=== PATIENT | female | born 1935 | race Caucasian/White ===

== ENCOUNTER → 2016-10-30 | Outpatient (CLI) | payer BC ==
[~2016-10-30] MED LIST: ASCA500 PO; ATV/1 PO; CALC1CAP24 PO; CARBGEL OPB; CHOL100010 PO; GABA-113 PO; HYPR0.2D OPB; LANS30CA12 PO; METO25TA3 PO; MOME50SP5; MULT-506 PO; POLY335025 PO; PROB1TAB16 PO; ZOLE5INJ IV
[2016-10-30 09:50] LABS: BASO % 0.6 %; BASO ABS # 0.03 K/uL (0-0.2); COMPLETE YES; EOS % 2.6 %; HEMATOCRIT 37.6 % (37-47); IG% 0.2 %; LYMPH % 43.9 %; LYMPH ABS # 2.04 K/uL (1.2-3.4); MEAN CELL VOLUME 88.9 fL (80-100); MEAN CORPUSCULAR HEMOGLOBIN 29.8 pg (25-34); MEAN CORPUSCULAR HGB CONC 33.5 g/dl (32-36); MEAN PLATELET VOLUME 10.7 fL (7.4-10.4); MONO % 11.8 %; NEUT % 40.9 %; PLATELET COUNT 177 K/uL (130-400); RED BLOOD COUNT 4.23 M/uL (4.2-5.4); WHITE BLOOD COUNT 4.65 K/uL (4.8-10.8)
[2016-10-30 10:02] LABS: BLOOD UREA NITROGEN 24 mg/dl (7-18); BUN/CREATININE RATIO 32.3 (10-20); CARBON DIOXIDE 29 mmol/L (21-32); CHLORIDE 107 mmol/L (98-107); CHOLESTEROL 189 mg/dl (0-200); CREATININE 0.73 mg/dl (0.60-1.20); GLUCOSE 93 mg/dl (70-99); SODIUM 143 mmol/L (136-145); TRIGLYCERIDES 126 mg/dl (0-150); VERY LOW DENSITY LIPOPROT CALC 25 mg/dl
[2016-10-30 10:05] LABS: CALCIUM 9.3 mg/dl (8.5-10.1)
[2016-10-30 10:06] LABS: CHOLESTEROL/HDL RATIO 2.9; FERRITIN 19.9 ng/ml (8.0-388.0); HDL CHOLESTEROL 65 mg/dl; LDL CHOLESTEROL CALCULATED 99 mg/dl
== END | disposition home or self-care (01) ==
LOC: C.LAB1850 07:31
PROVIDERS: ATTEND Obstetrics & Gynecology
DX: R92.2 Inconclusive mammogram (principal); Z13.220 Encounter for screening for lipoid disorders; M81.0 Age-related osteoporosis without current pathological fracture; D50.9 Iron deficiency anemia, unspecified

== ENCOUNTER → 2016-11-05 | Outpatient (CLI) | payer BC ==
[~2016-11-05] MED LIST changes: +GADAVIST IV PRN
--- NOTE | 2016-11-06 13:18 | MAMMOGRAPHY REPORT ---
BREAST MRI OF BOTH BREASTS : 11/05/2016 CLINICAL HISTORY: Personal history of left breast DCIS, and dense breasts. Patient presents for add itional screening. COMPARISON: Comparison is made to exams dated: 04/08/2016 mammogram, 04/05/2015 mammogram, 04/18/2014 ultrasound, 04/04/2014 mammogram, 03/31/2013 mammogram, and 03/30/2012 mammogram - [facility]. TECHNIQUE: Using a 1.5 Hilaria magnet and dedicated breast coil, multisequence axial images were obtai leonardo through the breasts. After uneventful IV administration of 5.5 mL of Gadavist, dynamic multipha se contrast-enhanced axial images, and sagittal postcontrast were obtained. Temporal subtraction ax ial images and 3-D MIP images are provided. Everything was then reviewed on a 3-D workstation, [employer]. FINDINGS: There is no significant background parenchymal enhancement. There are several foci of adeola ceptibility artifact in the middle and anterior 12:00, retroareolar and 6:00 axes of the left breast , denoting an area of prior surgery. There is no evidence of a suspicious enhancing mass, non-mass enhancement, suspicious kinetics or unexpected architectural distortion. No focal skin thickening o r nipple retraction. No suspicious axillary lymphadenopathy. Note is made of cardiomegaly. IMPRESSION: ACR BI-RADS CATEGORY 2: BENIGN 1. Evidence of prior surgery within the left breast. No MRI evidence of malignancy within the breas ts. Continuation of annual screening mammography schedule is recommended, with possible addition of breast MRI, given the extremely dense breast parenchyma and personal history of left breast cancer. 2. Cardiomegaly. The patient will receive written notification of the results. Sharee Duran M.D. ay/:11/05/2016 21:57:50 Senior Clinical Research Scientist: supervisor advice, [facility] letter sent: Normal 1/2 BI-RADS Code: ACR BI-RADS Category 2: Benign
== END | disposition home or self-care (01) ==
LOC: C.MRI 12:40
PROVIDERS: ATTEND Obstetrics & Gynecology
DX: R92.2 Inconclusive mammogram (principal); Z85.3 Personal history of malignant neoplasm of breast; I51.7 Cardiomegaly

== ENCOUNTER → 2016-12-02 | Outpatient (CLI) | payer BC ==
[~2016-12-02] MED LIST changes: -GADAVIST IV PRN
--- NOTE | 2016-12-02 14:57 | MAMMOGRAPHY REPORT ---
UNILATERAL LEFT DIGITAL DIAGNOSTIC MAMMOGRAM TOMOSYNTHESIS WITH CAD AND TARGETED LEFT ULTRASOUND: CLINICAL HISTORY: 81-year-old woman with a personal history of left breast cancer status post breast conservation therapy presents with pain and tenderness in the upper outer, superior, periareolar an d retroareolar left breast for approximately 6 weeks. No palpable mass, skin changes or thickening. No nipple discharge. TECHNIQUE: Left breast tomosynthesis in addition to standard 2D mammography was performed. Current [place] was also evaluated with a Computer Aided Detection (CAD) system. COMPARISON: Comparison is made to exams dated: 11/05/2016 breast MRI, 06/24/2016 ultrasound, 6 mammogram, 04/05/2015 mammogram, 04/04/2014 mammogram, and 03/31/2013 mammogram - [facility]. BREAST COMPOSITION: The tissue of the left breast is extremely dense, which lowers the sensitivity of mammography. FINDINGS: A square shaped pain marker was placed on the skin of the left upper outer quadrant, azael ting the area of pain pointed out by the patient. There are a few coarse benign calcifications in t he anterior retroareolar left breast. There is expected architectural distortion in the retroareola r breast, at the site of prior surgery. No obvious new mass, unexpected architectural distortion or new suspicious microcavitation indications are identified in the left breast. Targeted ultrasound was performed of the left breast with particular attention to the upper outer qu adrant and retroareolar breast in the areas of pain and tenderness pointed out by the patient. Thro ughout the visualized left breast, no suspicious solid or cystic mass is identified. A recent MRI performed 11/05/2016 was also reviewed with the patient and no suspicious abnormality, focal mass or cyst was seen in the left breast to explain the patient's symptoms. IMPRESSION: ACR BI-RADS CATEGORY 2: BENIGN, TARGETED ULTRASOUND ACR BI-RADS CATEGORY 2: BENIGN 1. There is no mammographic or targeted sonographic evidence of malignancy. No suspicious mammogra phic or sonographic abnormality to explain the nonfocal mastalgia of the left breast. Therefore, co ntinued clinical monitoring and clinical follow-up is recommended. 2. Return to annual mammogram (April 2017) and a breast MRI (November 2017) screening schedule is daniel mmended. The patient has been verbally notified of the results. Approximately 10% of breast cancers are not detected with mammography. A negative mammographic repor t should not delay biopsy if a clinically suggestive mass is present. Sharee Duran M.D. ay/:12/02/2016 09:58:17 Final Inspector And Tester: Ab TORRES)([place]), [facility] letter sent: Normal 1/2 BI-RADS Code: ACR BI-RADS Category 2: Benign Ultrasound BI-RADS: ACR BI-RADS Category 2: Benign
== END ==
LOC: C.MAMM 09:21
PROVIDERS: ATTEND Obstetrics & Gynecology
DX: N64.4 Mastodynia (principal)

== ENCOUNTER 2017-04-05 12:32 | Emergency (ER) | payer BC ==
[~2017-04-05] VITALS: Ht 161.3 cm; Wt 57.1 kg
[2017-04-05 12:42] VITALS: TEMP 36.3; Ht 161.3 cm; Wt 57.1 kg
--- NOTE | 2017-04-05 13:08 | DIAGNOSTIC IMAGING REPORT ---
R WRIST W/NAVICULAR MIN 3 VIEWS HISTORY: 82 years-old Female right wrist injury acute right wrist pain status post trauma. COMPARISON: None available. TECHNIQUE: 4 views of the right wrist with single navicular view for a total of 5 images FINDINGS: Bones are osteopenic. There is negative ulnar variance of 3 mm. Mild radiocarpal osteoarthritis. Severe first carpometacarpal osteoarthritis. There is mild soft tissue swelling about the wrist without acute fracture or dislocation. Scaphoid is intact. IMPRESSION: 1. Mild soft tissue swelling without acute fracture or dislocation. 2. Severe first carpometacarpal osteoarthritis. 3. Osteopenia. The above report was generated using voice recognition software. It may contain grammatical, syntax or spelling errors. Electronically signed by: Te Sprague M.D. 04/05/2017 1:06 PM Dictated Date/Time: 04/05/2017 1:05 PM
--- NOTE | 2017-04-05 13:10 | EMERGENCY ROOM VISIT NOTE ---
ED Visit Note First contact with patient: 12:45 CHIEF COMPLAINT: Wrist injury HISTORY OF PRESENT ILLNESS: This 82-year-old female patient presents to the emergency department ambulatory complaining of pain in the right wrist after picking at the 4 pound bag of sugar almost one week ago. She did not fall to the ground. She complains of pain in the first carpometacarpal joint. The patient is able to move their wrist. The patient states the pain is mild and 4/ 10. No laceration, no weakness. No numbness or tingling. The patient denies any other injury. The patient is able to move their fingers and elbow without difficulty. The patient has none had any previous injuries to this wrist. The patient has taken nothing for the pain. REVIEW OF SYSTEMS: A 6 system review of systems was performed with positives and pertinent negatives in the HPI. ALLERGIES: See nursing notes MEDICATIONS: Unchanged from previous PMH: PVCs SOCIAL HISTORY: The patient lives locally. She does not currently smoke PHYSICAL EXAM: Vital Signs: Reviewed Nurse's notes, vital signs stable. GENERAL : Us an 82-year-old female, in no acute distress, but appears to be in pain, well-developed, well-neurished. NEURO: Alert and oriented to person place and time. Normal sensation to light and sharp touch. MUSCULOSKELETAL: There is no obvious deformity of the right wrist. There is no erythema and or ecchymosis. There is mild edema. Tenderness over the first carpometacarpal joint of the right hand. There is no snuff box tenderness. There is tenderness with movement of the thumb. Range of motion is intact but uncomfortable. There is no tenderness of the elbow, hand or fingers. Drill Sergeant strength 4/5. Radial pulse 2+. SKIN: Normal and intact. The hand is warm and well perfused with capillary refill less than 2 seconds. EMERGENCY DEPARTMENT COURSE: I examined the patient. An X-ray of the right wrist was reviewed by myself and radiology and showed severe degenerative changes at the first carpometacarpal joint. A removable thumb spica splint was placed under my direction and the position was satisfactory. Neurovascular status rechecked and intact. The patient has seen Dr. Mccray in the past and had a cortisone injection in this joint. She was instructed to contact their office for a follow-up appointment. The patient was also seen and examined by Dr. Kearney who agrees with the assessment and treatment plan. The patient was discharged home in good condition. [~ rep ct add3]] R WRIST W/NAVICULAR MIN 3 VIEWS HISTORY: 82 years-old Female right wrist injury acute right wrist pain status post trauma. COMPARISON: None available. TECHNIQUE: 4 views of the right wrist with single navicular view for a total of 5 images FINDINGS: Bones are osteopenic. There is negative ulnar variance of 3 mm. Mild radiocarpal osteoarthritis. Severe first carpometacarpal osteoarthritis. There is mild soft tissue swelling about the wrist without acute fracture or dislocation. Scaphoid is intact. IMPRESSION: 1. Mild soft tissue swelling without acute fracture or dislocation. 2. Severe first carpometacarpal osteoarthritis. 3. Osteopenia. Medication Reconciliation: I attest that I have personally reviewed the patient' s current medication list. Blood pressure screening: The patient was found to have normal blood pressure on screening and does not require follow-up Problem List Medical Problems: (1) Esophageal dysmotility Status: Chronic (2) GERD (gastroesophageal reflux disease) Status: Chronic (3) History of endoscopy Status: Resolved Surgical Problems: (1) History of breast surgery Status: Resolved (2) History of oophorectomy Status: Resolved Current/Historical Medications Scheduled Calcium (Calcium), 500 MG PO BID Gabapentin (Neurontin), 900 MG PO HS Lansoprazole (Prevacid), 30 MG PO QAM Lorazepam (Ativan), 1 MG PO HS Metoprolol Succ (Toprol Xl) (Toprol-Xl), 25 MG PO Q2D Multivitamin (Multivitamin), 1 TAB PO QAM Allergies Coded Allergies: Ciprofloxacin (Verified Allergy, Intermediate, "burning sensation all over ", 12/17/15) doesn't think she's allergic to this.. Clavulanic Acid (Verified Allergy, Intermediate, ITCHY, 12/17/15) patient states that she isn't truly sure if she is allergic to this medication because there isn't a test for it but wanted it listed as a precaution because of her sensitivity to medicine Penicillins (Verified Allergy, Intermediate, ITCHY, 12/17/15) Raloxifene (Verified Allergy, Intermediate, Itchy, burning of skin (Evista ), 12/17/15) Ferrous Sulfate (Verified Allergy, Mild, Itchy, 12/17/15) Metronidazole (Verified Allergy, Mild, "skin sensitivity", 12/17/15) Pantoprazole (Verified Allergy, Mild, ITCHY, 12/17/15) Methylprednisolone (Verified Adverse Reaction, Unknown, BURNING SENSATION , 12/17/15) Vital Signs Date Time Temp Pulse Resp B/P (MAP) Pulse Ox O2 Delivery O2 Flow Rate FiO2 04/05/17 13:33 87 16 124/77 97 04/05/17 12:42 36.3 98 16 129/77 95 Room Air Departure Information Impression Primary Impression: Osteoarthritis of carpometacarpal (CMC) joint of right thumb Additional Impression: Thumb sprain Dispostion Home / Self-Care Condition GOOD Referrals Naomie Dye MD (PCP) Tereso Mccray M.D. Patient Instructions My [facility] [place] [employer], Osteoarthritis, Osteoarthritis [place] [facility] Additional Instructions Ibuprofen according to package instructions for pain Wear the splint over the next 3-5 days or until seen by orthopedics Contact orthopedics today to schedule a follow-up appointment for further evaluation and management Return with any worsening symptoms Problem Qualifiers Primary Impression: Osteoarthritis of carpometacarpal (CMC) joint of right thumb Osteoarthritis type: unspecified Qualified Codes: M18.11 - Unilateral primary osteoarthritis of first carpometacarpal joint, right hand Additional Impression: Thumb sprain Encounter type: initial encounter Sprain of finger site: other site Laterality: right Qualified Codes: S63.681A - Other sprain of right thumb, initial encounter
--- NOTE | 2017-04-05 13:21 | EMERGENCY ROOM VISIT NOTE ---
ED Visit Note First contact with patient: 12:45 I have seen and examined this patient with Gertrude Live and generally agree with the treatment plan as discussed. Problem List Medical Problems: (1) Esophageal dysmotility Status: Chronic (2) GERD (gastroesophageal reflux disease) Status: Chronic (3) History of endoscopy Status: Resolved Surgical Problems: (1) History of breast surgery Status: Resolved (2) History of oophorectomy Status: Resolved Current/Historical Medications Scheduled Ascorbic Acid (Vitamin C *), 500 MG PO QAM Calcium (Calcium), 500 MG PO BID Carboxymethylcellulose-Hyprome (Genteal), 1 APPL OPB HS Cholecalciferol (Vitamin D), 2,000 INTER.UNIT PO QAM Gabapentin (Neurontin), 900 MG PO HS Hypromellose (Ophth) (Genteal Mild), 1 DROP OPB QAM Lansoprazole (Prevacid), 30 MG PO QAM Lorazepam (Ativan), 1 MG PO HS Metoprolol Succ (Toprol Xl) (Toprol-Xl), 12.5 MG PO Q2D Multivitamin (Multivitamin), 1 TAB PO QAM Probiotic Product (Probiotic), 1 TAB PO QAM Zoledronic Acid (Reclast), 5 MG IV yearly Scheduled PRN Mometasone Furoate (Nasonex), 1 SPRAY NA BID PRN Polyethylene Glycol 3350 (Miralax), 17 GM PO DAILY PRN for Constipation Allergies Coded Allergies: Ciprofloxacin (Verified Allergy, Intermediate, "burning sensation all over ", 12/17/15) doesn't think she's allergic to this.. Clavulanic Acid (Verified Allergy, Intermediate, ITCHY, 12/17/15) patient states that she isn't truly sure if she is allergic to this medication because there isn't a test for it but wanted it listed as a precaution because of her sensitivity to medicine Penicillins (Verified Allergy, Intermediate, ITCHY, 12/17/15) Raloxifene (Verified Allergy, Intermediate, Itchy, burning of skin (Evista ), 12/17/15) Ferrous Sulfate (Verified Allergy, Mild, Itchy, 12/17/15) Metronidazole (Verified Allergy, Mild, "skin sensitivity", 12/17/15) Pantoprazole (Verified Allergy, Mild, ITCHY, 12/17/15) Methylprednisolone (Verified Adverse Reaction, Unknown, BURNING SENSATION , 12/17/15) Vital Signs Date Time Temp Pulse Resp B/P (MAP) Pulse Ox O2 Delivery O2 Flow Rate FiO2 04/05/17 12:42 36.3 98 16 129/77 95 Room Air Departure Information Referrals Naomie Dye MD (PCP) Patient Instructions My [facility]
[2017-04-05 13:33] VITALS: BP 124/77; PULSE 87; O2SAT 97
== END 2017-04-05 13:34 | disposition home or self-care (01) ==
LOC: C.EDB 12:34 → C.EDD 13:34
DX: M18.11 Unilateral primary osteoarthritis of first carpometacarpal joint, right hand (principal); S63.681A Other sprain of right thumb, initial encounter; X50.9XXA Other and unspecified overexertion or strenuous movements or postures, initial encounter; K21.9 Gastro-esophageal reflux disease without esophagitis

== ENCOUNTER → 2017-04-23 | Outpatient (CLI) | payer BC ==
[~2017-04-23] MED LIST changes: -ASCA500 PO; -CARBGEL OPB; -CHOL100010 PO; -HYPR0.2D OPB; -MOME50SP5; -POLY335025 PO; -PROB1TAB16 PO; -ZOLE5INJ IV
--- NOTE | 2017-04-24 13:43 | MAMMOGRAPHY REPORT ---
BILATERAL DIGITAL SCREENING MAMMOGRAM TOMOSYNTHESIS WITH CAD: 04/23/2017 CLINICAL HISTORY: Asymptomatic. Personal history of breast cancer. TECHNIQUE: Breast tomosynthesis in addition to standard 2D mammography was performed. Current study was also evaluated with a Computer Aided Detection (CAD) system. COMPARISON: Comparison is made to exams dated: 12/02/2016 ultrasound, 12/02/2016 mammogram, 11/05/2016 b reast MRI, 06/24/2016 ultrasound, 04/08/2016 mammogram, and 04/05/2015 mammogram - [facility]. BREAST COMPOSITION: The tissue of both breasts is extremely dense, which lowers the sensitivity of m ammography. FINDINGS: No suspicious masses, calcifications, or areas of architectural distortion are noted in ei ther breast. There has been no significant interval change compared to prior exams. There are stable postsurgical changes in the left breast; a linear scar marker denotes a scar on the left anterior br east. Scattered benign-appearing left breast calcifications are not significantly changed. Bilatera l asymmetries are stable. IMPRESSION: ACR BI-RADS CATEGORY 2: BENIGN There is no mammographic evidence of malignancy. A 1 year screening mammogram is recommended. The pa tient will receive written notification of the results. Approximately 10% of breast cancers are not detected with mammography. A negative mammographic report should not delay biopsy if a clinically suggestive mass is present. Airam Plascencia M.D. /:04/23/2017 15:31:47 Industrial Machinery Mechanic: Jaclyn Morales, [facility] letter sent: Normal 1/2 BI-RADS Code: ACR BI-RADS Category 2: Benign
== END | disposition home or self-care (01) ==
LOC: C.MAMM 13:06
PROVIDERS: ATTEND Obstetrics & Gynecology
DX: Z12.31 Encounter for screening mammogram for malignant neoplasm of breast (principal); Z85.3 Personal history of malignant neoplasm of breast

== ENCOUNTER → 2017-11-02 | Outpatient (CLI) | payer BC ==
[2017-11-02 13:51] LABS: BLOOD UREA NITROGEN 18 mg/dl (7-18); CREATININE 0.78 mg/dl (0.60-1.20)
== END | disposition home or self-care (01) ==
LOC: C.LAB1850 11:59
PROVIDERS: ATTEND Obstetrics & Gynecology
DX: Z01.818 Encounter for other preprocedural examination (principal)

== ENCOUNTER → 2017-11-09 | Outpatient (CLI) | payer BC ==
[~2017-11-09] MED LIST changes: +GADAVIST IV PRN
--- NOTE | 2017-11-10 15:12 | MAMMOGRAPHY REPORT ---
BREAST MRI OF BOTH BREASTS : 11/09/2017 CLINICAL HISTORY: 82-year-old woman with a personal history of left breast cancer diagnosed in 1993 s tatus post breast conservation treatment. She presents for breast MRI for additional screening, give n the personal history of breast cancer and extremely dense breasts. COMPARISON: Comparison is made to exams dated: 04/23/2017 mammogram, 12/02/2016 ultrasound, 12/02/2016 mammogram, 11/05/2016 breast MRI, 04/08/2016 mammogram, and 04/05/2015 mammogram - [facility]. TECHNIQUE: Using a 1.5 Hilaria magnet and dedicated breast coil, multisequence axial images were obtain ed through the breasts. After uneventful IV administration of 5.5 mL of Gadavist, dynamic multiphase contrast-enhanced axial images, and sagittal postcontrast were obtained. Temporal subtraction axial images and 3-D MIP images are provided. Everything was then reviewed on a 3-D workstation, [employer]. FINDINGS: There is no significant background parenchymal enhancement. There is expected architectural distorti on and foci of susceptibility artifact in the 12:00, retroareolar and 6:00 middle and anterior left b reast, denoting the site of prior lumpectomy. There is no suspicious enhancing mass, non-mass enhanc ement, unexpected architectural distortion or suspicious kinetics in either breast. No focal skin th ickening or nipple retraction. The retromammary fat is intact. No suspicious axillary, subpectoral or internal mammary lymphadenopathy. Again noted is mild cardiomegaly and slight prominence of the ascending thoracic aorta measuring appr oximately 3.5 cm in maximum dimension. IMPRESSION: ACR BI-RADS CATEGORY 2: BENIGN 1. Stable breast MRI, without MRI evidence of malignancy. Recommend continuation of annual screening mammography as well as screening breast MRI, given the personal history of left breast cancer and ext remely dense breasts. 2. Mild cardiomegaly and mild prominence of the ascending thoracic aorta measuring approximately 3.5 cm in maximum dimension. The patient will receive written notification of the results. Sharee Duran M.D. ay/:11/09/2017 20:41:53 Phlebotomy Program Coordinator: car dumper operator helper, [facility] letter sent: Normal 1/2 BI-RADS Code: ACR BI-RADS Category 2: Benign
== END | disposition home or self-care (01) ==
LOC: C.MRI 08:42
PROVIDERS: ATTEND Obstetrics & Gynecology
DX: Z85.3 Personal history of malignant neoplasm of breast (principal)